=== PATIENT | female | born 1950 | race Caucasian/White ===

== ENCOUNTER 2020-01-23 09:52 | Emergency (ER) | payer MEDICARE, MEDICAID, SELFPAY ==
--- NOTE | ~2020-01-23 | XR_ITS ---
XR foot LT min 3V DATE: 01/23/2020 10:48 INDICATION: Fell off of steps 3 weeks ago. Pain, swelling laterally TECHNIQUE: 4 views COMPARISON: None FINDINGS: There is evidence of subacute or old fracture at the neck of the fourth metatarsal bone. No recent fracture or dislocation, periosteal reaction or bone destruction is evident. IMPRESSION: Subacute or old fourth metatarsal neck fracture Reviewed, dictated and finalized at location A.
--- NOTE | ~2020-01-23 | XR_ITS ---
XR ankle LT min 3V DATE: 01/23/2020 10:48 INDICATION: Fell off of a step 3 weeks ago. Lateral pain and swelling. TECHNIQUE: 4 views COMPARISON: None FINDINGS: At least 2 very small linear opacities are noted subjacent to the lateral malleolus which m ay represent very small cortical avulsion fractures. There is mild ankle soft tissue swelling. No oth er fracture or dislocation of the ankle or disruption of the ankle mortise is detected. Probable old healed fourth metatarsal neck fracture deformity. IMPRESSION: Small cortical avulsion fractures from the inferior tip of the lateral malleolus are sugg ested Reviewed, dictated and finalized at location A. IMPRESSION: Small cortical avulsion fractures from the inferior tip of the late ral malleolus are suggested
[2020-01-23 10:02] VITALS: BP 164/72; PULSE 78; RESP 18; TEMP 37.5; O2SAT 100
--- NOTE | 2020-01-23 10:04 | ED.URI ---
HPI - URI/Sore Throat General Chief Complaint: Upper Respiratory Infection Stated Complaint: sore throat Time Seen by Provider: 01/23/20 10:25 Source: patient and RN notes reviewed Mode of arrival: ambulatory Limitations: no limitations History of Present Illness HPI Narrative: This is a 69 years old female presents to the office for an evaluation of sore throat for one week. Associated with post nasal drips with mild cough. Denies fever, shortness of breath, or vomiting. She tried [id number] cough drops and salt gargle for her throat with no relief. She also complaints of left foot pain from fall that she had three weeks ago. She accidentally slipped and went down about 6 steps and landed on her buttock. She scraped her left elbow which resulted in bruising for a week or 2 however it does not hurt right now. She did not seek care immediately because she worried about getting out of the house due to COVID. Related Data Allergies Allergy/AdvReac Type Severity Reaction Status Date / Time Sulfa (Sulfonamide Allergy Rash Verified 01/23/20 10:10 Antibiotics) Review of Systems Review of Systems: Narrative: CONSTITUTIONAL: Denies fever or chills ENT: Reports sinus congestion, drainage, sore throat. Denies ears pain CARDIOVASCULAR: Denies chest pain RESPIRATORY: Denies dyspnea, wheezing. Reports a little cough GASTROINTESTINAL: Denies abdominal pain, vomiting, diarrhea. Reports nausea. GENITOURINARY: Denies urinary symptoms SKIN: Denies rash MUSCULOSKELETAL: Reports left ankle and foot pain with swelling. States, she has not been taking it easy because she has to take care of her hospice mother at home. Admits to history of RA. NEUROLOGIC: Denies lightheaded/weakness. PMFSH Past Medical History Medical History (Updated 01/23/20 @ 12:54 by ABIDA Randolph) HTN (hypertension) Rheumatoid arthritis Surgical History Surgical History (Updated 01/23/20 @ 12:54 by ABIDA Randolph) Hx of hysterectomy Comments At time of signature, I agree with nursing past medical, surgical, social and family history. There is no relevant family history pertinent to the presenting complaint. Exam Narrative: Exam Narrative: GENERAL: This is a well-nourished, well-developed patient, in no apparent distress. EARS: External ears normal, auditory canals clear and without drainage, TMs normal without perforation. Hearing grossly intact. NOSE: External nose normal with no obvious nasal discharge, nares without redness, no rhinorrhea. THROAT: Mucous membranes moist, posterior pharynx edematous, erythema with drainage NECK: Neck supple, non-tender without lymphadenopathy, masses or thyromegaly. CARDIOVASCULAR: Regular rate and rhythm without murmurs, gallops, or rubs. RESPIRATORY: Clear to auscultation. Breath sounds equal bilaterally. No wheezes, rales, or rhonchi. GASTROINTESTINAL: Abdomen soft, non-tender, nondistended. Bowel sounds are active. No hepato-splenomegaly, or palpable masses. No guarding. SKIN: warm, intact with no suspicious lesions or rash, good texture and turgor. NEURO: awake, alert, and oriented to person, place and time. There were no obvious focal neurologic abnormalities. Steady gait EXTREMITIES: The ankle is swollen and tender over the lateral aspect but the skin is intact and there is no ligamentous instability. There is no deformity. Plantar aspect of first great toe is tender to palpation without obvious swelling. The foot and toes are warm and well-perfused. Sensation to pain and light touch is intact. Donny Coma Scale Eye Opening: Spontaneous 4 Donny Coma Scale Motor: Obeys Commands 6 Donny Coma Scale Verbal: Oriented 5 Course Vital Signs Vital signs: Vital Signs Temperature 99.5 F 01/23/20 10:02 Pulse Rate 78 01/23/20 10:02 Respiratory Rate 18 01/23/20 10:02 Blood Pressure 164/72 H 01/23/20 10:02 Pulse Oximetry 100 01/23/20 10:02 Temperature 99.5 F 01/23/20 10:02
== END 2020-01-23 12:15 | disposition home or self-care (01) ==
PROVIDERS: Emergency Provider Nurse Practitioner
DX: J06.9 Acute upper respiratory infection, unspecified (principal); S82.62XA Displaced fracture of lateral malleolus of left fibula, initial encounter for closed fracture; S92.912A Unspecified fracture of left toe(s), initial encounter for closed fracture; W10.9XXA Fall (on) (from) unspecified stairs and steps, initial encounter
CPT/HCPCS: 29515; 73610; 73630; 99214; G0463